=== PATIENT | female | born 1970 | race Caucasian/White ===

== ENCOUNTER 2017-06-22 16:35 | Emergency (ER) | payer SELFPAY ==
[~2017-06-22] VITALS: Ht 165.1 cm; Wt 54.0 kg
[2017-06-22 16:41] VITALS: BP 141/84
== END 2017-06-22 17:30 | disposition home or self-care (01) ==
LOC: ED 16:35
DX: S16.1XXA Strain of muscle, fascia and tendon at neck level, initial encounter (principal); Z88.6 Allergy status to analgesic agent; V49.40XA Driver injured in collision with unspecified motor vehicles in traffic accident, initial encounter; Y93.I9 Activity, other involving external motion; Y92.89 Other specified places as the place of occurrence of the external cause; Y99.8 Other external cause status